=== PATIENT | male | born 1970 | race Caucasian/White ===

== ENCOUNTER 2018-02-22 17:30 | Inpatient (IN) | payer OTHER ==
[~2018-02-22] VITALS: Ht 177.8 cm; Wt 79.4 kg
--- NOTE | 2018-02-23 20:10 | NUR ---
Pre-admission Notes Assessment done in intake office. Px appears disheveled, anxious and unshaven. Px has good eye contact. Px is A&Ox4. Px is ambulatory with steady gait. Speech is clear and audible. Px is cooperative, hyper and talkative. VS are as follows BP= 127/84, MI= 120, RR= 20, T= 97.3, O2sat= 97%. Px is here for medically supervised withdrawal from ETOH, methamphetamine, and marijuana. Px denies any hx of withdrawal-induced seizure. Px is allergic to Prednisone. Px has brought home medications for reconciliation. Admission process will continue in the unit.
[2018-02-23] MEDS ORDERED: LORAZEPAM 2 MG/1 ML VIAL IM PRN (20:30)
[2018-02-23] MEDS ORDERED: ONDANSETRON ODT 4 MG TAB.RAPDIS SL PRN (20:30)
[2018-02-23] MEDS ORDERED: LOPERAMIDE HCL 2 MG CAPSULE PO PRN ×2 (20:30)
[2018-02-23] MEDS ORDERED: MAGNESIUM HYDROXIDE 30 ML LIQUID UDC PO PRN (20:30)
[2018-02-23] MEDS ORDERED: MIRALAX 17 GM POWD.PACK PO PRN (20:30)
[2018-02-23] MEDS ORDERED: ONDANSETRON 4 MG/2 ML VIAL IM PRN (20:30)
[2018-02-23] MEDS ORDERED: diphenhydrAMINE 50 MG CAPSULE PO PRN (20:30)
[2018-02-23] MEDS ORDERED: MAG HYDROX/AL HYDROX/SIMETH 30 ML LIQUID UDC PO PRN (20:30)
[2018-02-23] MEDS ORDERED: DICYCLOMINE HCL 20 MG TABLET PO PRN (20:30)
[2018-02-23] MEDS ORDERED: LORAZEPAM 1 MG TABLET PO PRN ×3 (20:30)
[2018-02-23 21:15] VITALS: BP 123/102
--- NOTE | 2018-02-23 21:15 | NUR ---
CIWA 15 Px anxious and agitated. He has bilateral hand tremors. He has H/A, stomach cramp and no nausea. We'll continue to monitor.
--- NOTE | 2018-02-23 21:15 | NUR ---
Admission Notes Px is 47 y/o male who is being admitted for medically supervised withdrawal from ETOH, methamphetamine and marijuana. Px is intoxicated with methamphetamine at the moment and not with ETOH. Px is currently experiencing withdrawal from ETOH. Px appears disheveled, unshaven and anxious and depressed. Px is A&Ox4. He is cooperative, hyper, talkative with good eye contact. Speech is clear and audible. Px states that withdrawal from these substances include the following: boredom, bad sexual life, depression, irritability and dehydration. Px denies a hx of withdrawal-induced seizure. Px states current substance use as follows: 1. ETOH- Beer 12 cans or liquor of 750 ml daily for 6 mos, where the last intake was yesterday 02/22/2018 of 4 cans of beer. Px has been drinking ETOH for 40 years. 2. Methamphetamine- 3G IV/smoked daily for 5 mos, where the last use was today 02/23/2018 of 3.5 G IV/smoked. Px has been using meth for 34 years. 3. Marijuana- intermittent use of unspecified amount, px smokes it. Px has been smoking weed for 35 years. Px states "I decided to come today because I want to keep my life in order. I started noticing that my life is not on track anymore. My job is affected already. I am losing my skills. 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 I need to maintain my home, and my pets. I need to pay my bills. I want to be sober again and be organized. My ex-wifes insurance is what I am using here for my detox. We are in the process of divorce but she is still supporting me. I am starting to feel depressed." Px was in detox 7x and in rehabilitation center 7x where the last was in [facility] last 6-7 mos ago. Px added I relapsed because I had no spiritual defense and tools for recovery. I am poor in handling stress. My plan after detox is to go to [facility] and finish the program there for maybe 30 days. I need to come back to work right after that. I have a house to maintain and pets to feed. Px longest sobriety was 5 years in 1992 to 1997. VS are as follows BP= 123/102, NH= 113, RR= 18, T= 98.5, O2sat= 98% on RA. Px complained of back pain 5/10. Pulse is regular but tachycardic. Respirations are even and unlabored. Lung sounds are clear. Bowel sounds are active in all quadrants. Skin is intact. Mary Anne follows regular diet at home. Mary Anne is allergic to Prednisone. Mary Anne stands at 510 and weighs 175 lbs on standing scale. Px smokes 1 pack of cigarettes daily. Px PMH includes herniated disk in 2012, hx of URTI, Hep C in 2005, anxiety and depression. Px stated that his parents were both alcoholic but already due to cancers. Px has one sister and she is an occasional alcohol drinker. Mary Anne was educated about the plan of care including detox, group therapy, individual therapy therapy and D/C planning. Mary Anne was encouraged to be open and honest for a successful detox and good recovery.
[2018-02-23] MEDS ORDERED: NEOM1PAC2 TP (21:26)
[2018-02-23] MEDS ORDERED: MULT-1119 PO (21:26)
[2018-02-23 21:49] LABS: BASOPHILS # (AUTO) 0.1 K/uL (0.0-8.0); BASOPHILS % (AUTO) 0.7 % (0.0-2.0); EOSINOPHILS # (AUTO) 0.2 K/uL (0.0-0.7); EOSINOPHILS % (AUTO) 1.9 % (0.0-7.0); HEMATOCRIT 46.7 % (36.7-47.1); HEMOGLOBIN 16.1 g/dL (12.5-16.3); LYMPHOCYTES # (AUTO) 2.8 K/uL (20.0-40.0); LYMPHOCYTES % (AUTO) 33.4 % (20.5-51.5); MEAN CORPUSCULAR HEMOGLOBIN 33.2 uug (23.8-33.4); MEAN CORPUSCULAR HGB CONC 34 g/dL (32.5-36.3); MEAN CORPUSCULAR VOLUME 96.6 fL (73.0-96.2); MONOCYTES # (AUTO) 0.9 K/uL (2.0-10.0); MONOCYTES % (AUTO) 10.2 % (0.0-11.0); NEUTROPHILS # (AUTO) 4.5 K/uL (1.8-8.9); NEUTROPHILS % (AUTO) 53.8 % (38.5-71.5); PLATELET COUNT (AUTO) 324 K/uL (152-348); RED BLOOD CELL COUNT(AUTO) 4.84 MIL/uL (4.06-5.63); WHITE BLOOD COUNT (AUTO) 8.4 K/uL (3.6-10.2)
[2018-02-23 22:05] LABS: ETHANOL < 3 MG/DL (0-0)
[2018-02-23] MEDS ORDERED: THIAMINE HCL 200 MG/2 ML VIAL IM ONE (22:21)
--- NOTE | 2018-02-23 22:21 | NUR ---
Vit B1 injection Px received Vit B1 injection 100 mg IM as 1x dose on his right deltoids.
[2018-02-23 22:24] LABS: ALANINE AMINOTRANSFERASE 39 U/L (16-63); ALKALINE PHOSPHATASE 121 U/L (50-136); AMYLASE 43 U/L (25-115); ASPARTATE AMINOTRANSFERASE 23 U/L (15-37); BILIRUBIN,TOTAL 0.3 mg/dL (0.2-1.0); CARBON DIOXIDE 26 mmol/L (21-32); CHLORIDE 101 mmol/L (98-107); CREATININE 1.3 mg/dL (0.6-1.3); GLUCOSE 146 mg/dL (74-106); LIPASE 166 U/L (73-393); MAGNESIUM 2.1 mg/dL (1.8-2.4); POTASSIUM 3.3 mmol/L (3.5-5.1); TOTAL PROTEIN, SERUM 7.8 g/dL (6.4-8.2); UREA NITROGEN, BLOOD 15 mg/dL (7-18)
[2018-02-23] MEDS: CLONIDINE HCL 0.1 MG TABLET PO PRN (22:27)
--- NOTE | 2018-02-23 22:27 | NUR ---
PRN Clonidine Px has not provided urine yet for UDS. Px received Clonidine 0.1 mg/tab, 1 tab PO for anxiety. We'll continue to monitor.
[2018-02-23 22:35] LABS: THYROID STIMULATING HORMONE 2.253 mIU/mL (0.358-3.740)
[2018-02-23] MEDS ORDERED: POTASSIUM CHLORIDE 20 MEQ TAB.PRT.SR PO ONE (23:15)
--- NOTE | 2018-02-23 23:43 | NUR ---
K-Dur 1x dose Px received K-Dur 20 mEq/tab, 2 tabs as 1x dose for low potassium. We'll continue to monitor.
[2018-02-24] VITALS: BP 138/74
--- NOTE | 2018-02-24 | NUR ---
CIWA 13 Px is still awake but trying to sleep on his bed. Px appears anxious. He has bilateral hand tremors, H/A, stomach cramp and no nausea. Px has not provided urine yet for UDS. We'll continue to monitor.
[2018-02-24] MEDS ORDERED: 5 DAY TAPER VALIUM-SERENITY PROTOCOL PO PRN (02:30)
[2018-02-24 04:00] VITALS: BP 128/78
--- NOTE | 2018-02-24 04:00 | NUR ---
CIWA deferred CIWA deferred due to the px is asleep, to assess if the px is awake per doctor's order. We'll continue to monitor.
--- NOTE | 2018-02-24 07:00 | NUR ---
End of Shift Notes Px didnt provide urine for UDS. At 2227, px received Clonidine 0.1 mg PO for anxiety. It was effective. At 2343, K-Dur 40 mEqs given PO for low potassium. Px oral intake is 1500 ml, no void and No BM. Px slept for 6 hours. At 0630, px is asleep on bed in left side lying position. Last CIWA 13. Bed on lowest position, side rails up 2x, and call light within reach. Well continue to monitor. Px endorsed to AM shift nurse.
--- NOTE | 2018-02-24 07:30 | NUR ---
Start of Shift Notes: Received patient in his room. He is seen laying in bed. Eyes closed. Appears restless in bed. Frequently shifting his body movement, restless legs, and both arms crossed on his chest while swinging his body left and right in bed. He was encouraged to verbalize his feelings and concerns. Appears disheveled, unshaven, flushed, red eyes, dirty fingernails, and unkempt. Encouraged maintenance of personal hygiene and space. Room appears messy with empty bottles at bedside. Maintenance of personal hygiene and space was encouraged. Affect is blunt, he verbalizes that he is worried, and anxious about the situation. He states "I've done this way too many times." Support provided. Patient is a 47 year old male admitted for ETOH and methamphetamine withdrawal who was placed on a 5-day Valium taper as ordered. Patient will be starting today. Per night report, patient has not given urine for UDS, last CIWA 13, slept for 6 hours. PRN Clonidine given. Educated patient on his current plan of care for the day and his medication regimen. Encouraged oral fluid intake and encouraged group participation to learn new skills to prevent relapse. Will continue to monitor closely.
[2018-02-24 08:00] VITALS: BP 135/92
[2018-02-24] MEDS: THIAMINE HCL 100 MG TABLET PO SCH (08:24)
[2018-02-24] MEDS: CLONIDINE HCL 0.1 MG TABLET PO PRN (08:24)
[2018-02-24] MEDS: ACETAMINOPHEN 325 MG TABLET PO PRN (08:24)
[2018-02-24] MEDS: MULTIVITAMINS,THERAPEUTIC TABLET PO SCH (08:25)
[2018-02-24] MEDS: FOLIC ACID 1 MG TABLET PO SCH (08:25)
[2018-02-24] MEDS: HYDROXYZINE PAMOATE 25 MG CAPSULE PO PRN (08:25)
--- NOTE | 2018-02-24 08:25 | NUR ---
Tylenol 650 mg/Vistaril 50 mg/Clonidine 0.1mg PO given: Patient noted with complain of mild headache 3/10, anxious, hyperverbal, agitated. Noted with sweating visible on the forehead, and appears flushed. Medicated patient with Tylenol 650 mg PO, Vistaril 50 mg PO and Clonidine 0.1mg PO as ordered. Will monitor for effectiveness.
--- NOTE | 2018-02-24 08:34 | NUR ---
[facility] Assessment/MD Communication: ADAM 23, patient noted with gross tremors, restlessness, hyperverbal, appears flushed, agitated, sweating. Prefers the room dark. Complains of chills, hot flashes, and states "my head feels full." Denies S/I or H/I. No AV hallucinations noted. Patient is still unable to provide urine for UDS. Notified MD Flores. Per MD, continue current taper orders at this time. Addendum: 02/24/18 at 0838 by SANTO SURESH LVN Amended: Links added.
[2018-02-24] MEDS: DIAZEPAM 10 MG TABLET PO SCH ×4 (08:53→21:57)
[2018-02-24] MEDS ORDERED: POTASSIUM CHLORIDE 20 MEQ TAB.PRT.SR PO ONE (09:00)
[2018-02-24] MEDS ORDERED: TUBERCULIN,PURIF.PROT.DERIV. 5 TU/0.1 ML TEST ID ONE (09:00)
--- NOTE | 2018-02-24 09:25 | NUR ---
Re-assessment: Clonidine/Vistaril and Tylenol Patient verbalizes some relief from anxiety, less sweating noted. CLINTON is now a 2/10. He is attempting to get some sleep but is restless in bed. He is seen with restless legs while laying down. Shifts his body position. 5-day Valium taper initiated. PRN Clonidine/Vistaril and Tylenol were effective.
[2018-02-24 09:51] LABS: *AMPHETAMINE, URINE POSITIVE (NEGATIVE); *BARBITURATE, URINE NEGATIVE (NEGATIVE); *CANNABINOID, URINE NEGATIVE (NEGATIVE); *COCCAINE, URINE NEGATIVE (NEGATIVE); *OPIATE, URINE NEGATIVE (NEGATIVE); *PHENCYCLIDINE SCREEN,URINE NEGATIVE (NEGATIVE)
[2018-02-24 12:00] VITALS: BP 126/75
--- NOTE | 2018-02-24 12:00 | NUR ---
CIWA Assessment: Patient's CIWA -17, continues to present with s/s of withdrawal m/b gross tremors, restlessness, sweating noted, anxiety, agitation, fidgety, and light sensitivity. Denies S/i or H/I noted. No AV hallucinations noted. Oral fluids encouraged. Scheduled Valium given. MD Flores made aware of patient's CIWA score. Per MD, continue Valium taper as scheduled. Will continue to monitor. Addendum: 02/24/18 at 1217 by SANTO SURESH LVN Amended: Links added.
[2018-02-24 16:00] VITALS: BP 99/67
--- NOTE | 2018-02-24 16:00 | NUR ---
[facility] Assessment: CIWA 14, patient continues to present s/s of withdrawal m/b anxiety, agitation, tremors, sweating and light sensitivity. He states "It's less now." Will continue to monitor. Addendum: 02/24/18 at 1639 by SANTO SURESH LVN Amended: Links added.
--- NOTE | 2018-02-24 17:21 | NUR ---
Client was prompted by therapist to attend daily group therapy sessions. Client related that he would attend if he was feeling well.
--- NOTE | 2018-02-24 19:14 | NUR ---
End of Shift Notes: Patient initiated his 5-day Valium taper today to manage symptoms related to ETOH withdrawal. No adverse reactions noted. VS monitored closely. No significant abnormalities noted. Withdrawal symptoms were closely monitored. Initial CIWA 23, patient presented with diaphoresis, gross tremors, restlessness, fatigue, anxiety, agitation, headache, light sensitivity and tactile disturbance. Medicated patient with Clonidine, Vistaril and Tylenol at 0825 as ordered with help. Last CIWA 14. Patient was unable to participate in group and activities due to his withdrawal symptoms. He was also noted with episodes of hyper somnolence during the day due to methamphetamine withdrawal. Appetite good. Compliant with care and treatment. All needs met and attended. Will continue to monitor.
[2018-02-24 20:00] VITALS: BP 127/74
--- NOTE | 2018-02-24 20:00 | NUR ---
CIWA deferred CIWA deferred due to the px is asleep, to assess if the px is awake per doctor's order. We'll continue to monitor.
--- NOTE | 2018-02-24 20:00 | NUR ---
Start of Shift Note Received a 47 y/o male px, admitted for medically supervised withdrawal from ETOH. Px was placed on 5 day Valium taper started today, 02/24/2018. Px is tolerating it. Last reported CIWA 14 by AM shift nurse. During the rounds at 2000, px is asleep on bed in left side lying position. Snacks and drinks noted on top of the bed side table and on top of the shelves. Px is disheveled, unshaven and odorous. Bed on lowest position, side rails up 2x, and call light within reach. Well continue to monitor.
--- NOTE | 2018-02-24 21:45 | NUR ---
CIWA 14 Px is A&Ox4. Px appears anxious. Bilateral hand tremors noted. Px complained of sweats, mild stomach cramps and mild H/A. We'll continue to monitor.
--- NOTE | 2018-02-24 21:45 | NUR ---
Px woke up PX woke up to take his night medication. Px appears drowsy, unshaven, anxious, disheveled with good eye contact. Px stated "My anxiety is still there 4-12/24. I still have LBP around 410." Bilateral hand tremors noted. Complained also for stomach cramps. We'll continue to monitor.
[2018-02-25] VITALS: BP 127/84
--- NOTE | 2018-02-25 | NUR ---
CIWA deferred CIWA deferred due to the px is asleep, to assess if the px is awake per doctor's order. We'll continue to monitor.
--- NOTE | 2018-02-25 01:15 | NUR ---
Px concerns on Valium Px stated "I feel like I am doped. What you are giving me is strong. I want to go out to smoke or attend the groups or take a shower, but I can't do it. I am confined on my bed. It's like I don't have power to walk or do something. Valium taper was explained to the px. Px concern was relate to the charge nurse.
--- NOTE | 2018-02-25 01:15 | NUR ---
CIWA 11 Px woke up asking for chocolate bar. Px appears anxious with good eye contact. Bilateral hand tremors noted. We'll continue to monitor.
[2018-02-25 04:00] VITALS: BP 123/86
--- NOTE | 2018-02-25 04:00 | NUR ---
CIWA deferred CIWA deferred due to the px is asleep, to assess if the px is awake per doctor's order. We'll continue to monitor.
--- NOTE | 2018-02-25 07:05 | NUR ---
End of Shift Notes During the shift, px slept most of the time. No PRN medications given. Px slept for total of 9 hours. Px woke up at 0115 with concerns of lowering his Valium dose. Pxs concerns was relayed to the charge nurse. Pxs oral intake is 1000 ml, voided 2x with 1x BM. At 0630, px is asleep on bed in fowlers position. Last CIWA 11. Bed on lowest position, side rails up 2x, and call light within reach. Well continue to monitor. Px endorsed to AM shift nurse.
--- NOTE | 2018-02-25 07:13 | NUR ---
Start of Shift Notes: Received patient in his room. Alert and oriented x 4. Arousable when his name is called. Appears restless in bed. Frequently shifting his body position. Appears disheveled, unshaven, flushed, dirty fingernails, and unkempt. Encouraged maintenance of personal hygiene and space. Room appears messy with empty bottles and candy wrappers on the bed and at bedside. Affect is blunt. Encouraged to verbalize his feelings and concerns. Support provided. Patient is a 47 year old male admitted for ETOH and methamphetamine withdrawal who was placed on a 5-day Valium taper as ordered. Patient is going to start day 2 today. Per night report, patient did not receive and PRN. Last CIWA 11 and slept for 9 hours. Educated patient on his current plan of care for the day and his medication regimen. Encouraged oral fluid intake and encouraged group participation to learn new skills to prevent relapse. Will continue to monitor closely. Will follow up with MD patient's concern regarding Valium taper.
[2018-02-25 08:00] VITALS: BP 130/83
--- NOTE | 2018-02-25 08:40 | NUR ---
[facility] Assessment/MD Communication: [facility] 18, patient presented with mild nausea, gross tremors, sweating, anxiety, agitation and mild light sensitivity. Notified MD, per MD continues current taper as ordered. Addendum: 02/25/18 at 0947 by SANTO SURESH LVN Amended: Links added.
[2018-02-25] MEDS: IBUPROFEN 600 MG TABLET PO PRN (09:02)
[2018-02-25] MEDS: THIAMINE HCL 100 MG TABLET PO SCH (09:02)
[2018-02-25] MEDS: MULTIVITAMINS,THERAPEUTIC TABLET PO SCH (09:02)
[2018-02-25] MEDS: FOLIC ACID 1 MG TABLET PO SCH (09:02)
[2018-02-25] MEDS: DIAZEPAM 10 MG TABLET PO SCH ×3 (09:02→21:00)
--- NOTE | 2018-02-25 09:02 | NUR ---
Motrin 600 mg PO given: Patient noted with complain of 6/10 low back pain r/t hx of herniated disc and DJD. Heat packs provided. Medicated patient with Motrin 600 mg PO as ordered. Will monitor for effectiveness.
--- NOTE | 2018-02-25 10:02 | NUR ---
Re-assessment: Motrin 600 mg PO Patient verbalizes relief from low back pain. PL is now 3/10. PRN Motrin was effective.
[2018-02-25 11:09] LABS: HEPATITIS B SURFACE AG Negative (Negative)
--- NOTE | 2018-02-25 11:18 | NUR ---
Communication: Labs Reviewed labs. Hep C results >11.0, patient reported hx of Hep C in 2005. made aware.
[2018-02-25 12:00] VITALS: BP 130/82
--- NOTE | 2018-02-25 12:40 | NUR ---
[facility] Assessment/ Communication: OTIS 17, patient continues to exhibit s/s of withdrawal related to ETOH m/b anxiety, agitation, tremors, clammy skin and sweats. MD Flores in the unit and made aware. Addendum: 02/25/18 at 1241 by SANTO SURESH LVN Amended: Links added.
--- NOTE | 2018-02-25 14:15 | NUR ---
MD Communication: Chest pain/VS Patient's pulse was noted to be 118 while at rest. He complains of right sided chest pain as well as left arm pain. He states "It's been 2 weeks since I've been feeling some pain on my chest, I feel like there's something there. I don't think it's anxiety though." Notified MD Flores in the unit and gave verbal orders to do Troponin level and EKG STAT. Orders noted and carried out.
--- NOTE | 2018-02-25 15:55 | NUR ---
MD Communication: EKG/Troponin level results Patient's EKG resulted. Results stated "sinus tachycardia." Troponin levels were 0.017. Notified MD. GISELAO made.
[2018-02-25 16:00] VITALS: BP 158/95
--- NOTE | 2018-02-25 16:03 | NUR ---
CIWA Assessment: Patient's CIWA 15, he continues to complain of anxiety, agitation, and light sensitivity. Skin moist to touch. Will continue to monitor. Offer support and offer mds as ordered. Addendum: 02/25/18 at 1603 by SANTO SURESH LVN Amended: Links added.
[2018-02-25] MEDS: CLONIDINE HCL 0.1 MG TABLET PO PRN (16:41)
[2018-02-25] MEDS: HYDROXYZINE PAMOATE 25 MG CAPSULE PO PRN (16:41)
--- NOTE | 2018-02-25 16:41 | NUR ---
Clonidine 0.1mg/Vistaril 50 mg PO given: Patient appears anxious. States "I feel my heart beating so fast. I'm too anxious. Something is bothering me and I don't know what it is." Redirection and reassurance provided. BP 161/95, Pulse 108. Medicated patient with Clonidine 0.1mg PO and Vistaril 50 mg PO as ordered. Denies S/I or H/I. Denies AV hallucinations. Will monitor for effectiveness.
--- NOTE | 2018-02-25 17:41 | NUR ---
Re-assessment: Clonidine and Vistaril Patient verbalizes relief form anxiety, and sweats. BP 139/89, Pulse 99. PRN Clonidine and Vistaril were effective.
--- NOTE | 2018-02-25 19:21 | NUR ---
End of Shift Notes: Patient continues to on 5-day Valium as ordered. Patient is currently on day 2 on his taper. VS monitored closely. Noted to be tachycardic during the day. MD aware. Withdrawal symptoms were closely monitored. Initial CIWA 18, patient presented with nausea, tremors, sweating, anxiety, agitation, clammy skin, fatigue and light sensitivity. Last CIWA 15. Per patient, Valium has been effective in reducing his withdrawal symptoms. Medicated patient with Motrin 600 mg PO as ordered for back pain. He was noted to complain of chest pain. EKG/Troponin level done. NNO made. Encouraged to attend group and activities. Appetite good. All needs met and attended. Will continue to monitor closely.
--- NOTE | 2018-02-25 19:22 | NUR ---
Start of shift note Received report from day shift nurse. Pt is a 47 yo male, A+Ox4, presenting to [facility] for ETOH/Meth withdrawal. Pt noted to be fatigued, agitated, irritable, and anxious. Pt has HX of Herniated disc, URI, Hep C+, Anxiety, and Depression which will be monitored during shift. Pt is on 5 day Valium taper, tolerated well. Respirations even and unlabored. Will continue to monitor.
[2018-02-25 20:12] VITALS: BP 123/84
--- NOTE | 2018-02-25 20:12 | NUR ---
CIWA: 12. Pt noted with fine tremors, anxiety, agitation, and sweat on forehead. Respirations even and unlabored. Will continue to monitor.
--- NOTE | 2018-02-26 00:28 | NUR ---
V/S refused and CIWA deferred for sleep. Respirations even and unlabored. Will continue to monitor.
--- NOTE | 2018-02-26 04:20 | NUR ---
V/S refused and CIWA deferred for sleep. Respirations even and unlabored. Will continue to monitor.
[2018-02-26] MEDS: IBUPROFEN 600 MG TABLET PO PRN (06:31)
[2018-02-26] MEDS: CLONIDINE HCL 0.1 MG TABLET PO PRN (06:31)
--- NOTE | 2018-02-26 06:31 | NUR ---
PRN Clonidine and Motrin Pt c/o anxiety and back pain 11/24. PRN Clonidine and Motrin given and tolerated well. Will reassess within 1 HR. Will continue to monitor.
--- NOTE | 2018-02-26 07:00 | NUR ---
End of shift note Pt was continuously noted with fatigue, agitation, irritability, and anxiety. Pt remained in room for majority of shift except to get food from kitchen. Pt remained compliant and cooperative with all aspects of treatment. Pt was given PRN Clonidine and Motrin @0630. Pt is on 5 day Valium taper, tolerated well. Pt slept for a total of 9 HRS. Last CIWA: 12 @1999. Respirations even and unlabored. Will endorse to day shift nurse.
--- NOTE | 2018-02-26 07:10 | NUR ---
PRN Clonidine and Motrin Reassessment Medication effective. Pt expresses reduction in anxiety and reduction in back pain to 2/10. No s/s of ASE noted at this time. Respirations even and unlabored. AM nurse will continue to monitor.
--- NOTE | 2018-02-26 07:27 | NUR ---
Start of Shift Notes: Received patient in his room. Alert and oriented x 4. Arousable when his name is called. Appears restless in bed. Frequently shifting his body position. Encouraged maintenance of personal hygiene and space. Room appears messy with empty bottles and candy wrappers on the bed and at bedside. Affect is blunt. Encouraged to verbalize his feelings and concerns. Patient states " I don't know I've been feeling a little depressed lately." Support provided. Will refer to MD. Patient is a 47 year old male admitted for ETOH and methamphetamine withdrawal who was placed on a 5-day Valium taper as ordered. Patient is going to start day 3 today. Per night report, patient received Clonidine and Motrin at 0630 with help. Last CIWA 12 and slept for 9 hours. Educated patient on his current plan of care for the day and his medication regimen. Encouraged oral fluid intake and encouraged group participation to learn new skills to prevent relapse. Will continue to monitor closely.
[2018-02-26 08:00] VITALS: BP 113/83
--- NOTE | 2018-02-26 08:25 | NUR ---
[facility] Assessment/MD Communication: [facility] 21, patient states "I don't feel right today. I feel like shit." Encouraged patient to verbalize his feelings and concerns. He states "I feel nervous, anxious, hungry, a lot of guilt, shame and depression. He is noted with anxiety/agitation, pacing and restless while in the room, gross tremors and sweating. Will offer PRN meds. Notified MD. Will continue to monitor. Addendum: 02/26/18 at 0836 by SANTO SURESH LVN Amended: Links added.
[2018-02-26] MEDS: HYDROXYZINE PAMOATE 25 MG CAPSULE PO PRN (08:29)
[2018-02-26] MEDS: THIAMINE HCL 100 MG TABLET PO SCH (08:29)
[2018-02-26] MEDS: MULTIVITAMINS,THERAPEUTIC TABLET PO SCH (08:29)
[2018-02-26] MEDS: ACETAMINOPHEN 325 MG TABLET PO PRN (08:29)
[2018-02-26] MEDS: FOLIC ACID 1 MG TABLET PO SCH (08:29)
--- NOTE | 2018-02-26 08:29 | NUR ---
Vistaril 50 mg PO/Tylenol 650 mg PO: Patient noted with anxiety, and agitation. Pulse 116. BP 113/83, He complains of 4/10 low back pain. Medicated patient with Vistaril 50 mg PO and Tylenol 650 mg PO as ordered. Will monitor for effectiveness. Addendum: 02/26/18 at 1109 by SANTO SURESH LVN Error. Duplicate charting
--- NOTE | 2018-02-26 08:29 | NUR ---
Tylenol 650 mg/Vistaril 50 mg PO given: Patient noted with complain of 4/10 back pain r/t hx of herniated disc. He is noted to be anxious and restless. Non-pharmacological interventions provided. Patient verbalizes that he feels that he is confused as to where to go in life regarding his girlfriend and . He verbalizes that he needs to get his life back but does not know how. Referred patient to Herrera, therapist. Medicated patient with Tylenol 650 mg PO and Vistaril 50 mg PO as ordered. Will monitor for effectiveness.
[2018-02-26] MEDS: DIAZEPAM 5 MG TABLET PO SCH ×5 (08:30→21:00)
--- NOTE | 2018-02-26 09:29 | NUR ---
Re-assessment: Tylenol and Vistaril Patient veralizes that PRN Tylenol was effective in relieving back pain. He states that he continues to feel anxious and agitated. Vistaril 50 mg PO was mildly effective. Herrera, therapist is speaking with the patient at this time.
--- NOTE | 2018-02-26 10:41 | NUR ---
MD Communication: Behavior/CIWA note Patient noted with increase in anxiety and agitation. He states "I see colors in my line of vision and my skin is crawling, everything is a mess." Redirected patient and reassurance was provided. He was noted to be tremulous and sweating. Encouraged patient to verbalize his feelings and concerns. Patient states "I'm a mess, I'm confused with my life but my skin is crawling." Patient's CIWA was noted to be 26. Notified MD Mcdonough in the unit with orders to give Seroquel 50 mg PO TID with the first dose now and orders obtained from Dr. Flores who was notified of patient's CIWA with orders to administer Ativan 2 mg PO q 2 hours PRN x 24 hours. MDs were unable to enter orders. Orders noted and carried out. Referred patient to therapist, Herrera.
[2018-02-26] MEDS ORDERED: LORAZEPAM 1 MG TABLET PO PRN ×2 (10:45)
--- NOTE | 2018-02-26 10:49 | NUR ---
Psych MD evaluation: 1:1 Patient was seen and examined by Dr. Mcdonough at this time with orders to place patient on 1:1 due to visual hallucinations. Seeing colors on the wall and increase agitation leading to rage. Patient was placed on a 1:1 at this time.
[2018-02-26] MEDS: QUETIAPINE FUMARATE 25 MG TABLET PO SCH ×3 (10:51→21:00)
--- NOTE | 2018-02-26 10:51 | NUR ---
Ativan 2 mg PO given: Patient was given Ativan 2 mg PO for CIWA 26, patient presented with increased agitation, pacing, panic state, anxiety, gross tremors, restlessness, tachycardia and visual hallucinations and tactile disturbance. Patient was also given first dose of Seroquel 50 mg PO TID at this time for severe agitation. Will monitor for effectiveness.
--- NOTE | 2018-02-26 11:51 | NUR ---
Re-assessment: Ativan Patient continues to report visual hallucinations. He states " I still see colors and patterns on my vision. It's like I have floaters and my skin keeps crawling. I'm so anxious and I'm shaking." Upon assessment, ADAM was a 26. Will administer Valium as scheduled. aware.
[2018-02-26 12:00] VITALS: BP 139/89
--- NOTE | 2018-02-26 12:00 | NUR ---
[facility] Assessment/MD Communication: [facility] 24, patient noted with severe anxiety, agitation, gross tremors, and sweating. He continues to see patterns and colors. He denies any S/I or H/I at this time. On 1:1 for safety. He is noted to attempt to fall asleep but keeps on waking up after a few minutes. MD Flores made aware.
--- NOTE | 2018-02-26 13:29 | NUR ---
Several attempts have been made to complete [employer] however due to his level of consciousness and withdrawal symptoms he has been unable to go through the interview. There is some evidence of confusion as he is convinced one of the male staff members know his girlfriend. He is still requiring a one-to-one due to his confusion and fall risk.
[2018-02-26 15:42] LABS: BASOPHILS # (AUTO) 0.1 K/uL (0.0-8.0); BASOPHILS % (AUTO) 0.7 % (0.0-2.0); EOSINOPHILS # (AUTO) 0.4 K/uL (0.0-0.7); EOSINOPHILS % (AUTO) 5.3 % (0.0-7.0); HEMOGLOBIN 15.9 g/dL (12.5-16.3); LYMPHOCYTES # (AUTO) 2.7 K/uL (20.0-40.0); LYMPHOCYTES % (AUTO) 38.7 % (20.5-51.5); MEAN CORPUSCULAR HEMOGLOBIN 33.3 uug (23.8-33.4); MEAN CORPUSCULAR HGB CONC 35 g/dL (32.5-36.3); MEAN CORPUSCULAR VOLUME 96.3 fL (73.0-96.2); MONOCYTES # (AUTO) 0.7 K/uL (2.0-10.0); MONOCYTES % (AUTO) 10.3 % (0.0-11.0); NEUTROPHILS # (AUTO) 3.1 K/uL (1.8-8.9); PLATELET COUNT (AUTO) 292 K/uL (152-348); RED BLOOD CELL COUNT(AUTO) 4.78 MIL/uL (4.06-5.63)
[2018-02-26 16:00] VITALS: BP 138/90
[2018-02-26 16:06] LABS: BILIRUBIN,TOTAL 0.2 mg/dL (0.2-1.0); CREATININE 0.9 mg/dL (0.6-1.3); POTASSIUM 4.2 mmol/L (3.5-5.1); TOTAL PROTEIN, SERUM 6.6 g/dL (6.4-8.2)
--- NOTE | 2018-02-26 17:47 | NUR ---
CIWA Deferred: Patient is laying in bed. Sound asleep arousable. Breathing even and unlabored. RR 18. Unable to obtain CIWA at this time Addendum: 02/26/18 at 1748 by SANTO SURESH LVN Amended: Links added.
--- NOTE | 2018-02-26 17:49 | NUR ---
Valium at 1700 not administered: patient appears too sedated. Vs stable. Valium dose at 1700 held. made aware.
--- NOTE | 2018-02-26 17:59 | NUR ---
Valium at 1700 administered/CIWA Assessment: CIWA 18, patient continues to present with tremors, light sensitivity, visual patterns on the wall, agitation, anxiety and fatigue, mild tactile disturbance noted. Notified MD of patient's CIWA. Per MD, continue with current orders. Will continue to monitor. Administered Valium 5 mg PO at 1700 dose.
--- NOTE | 2018-02-26 19:08 | NUR ---
End of Shift Notes: Patient continues to on 5-day Valium as ordered. Patient is currently on day 3 of his taper. VS monitored closely. Patient continues to be tachycardic. Withdrawal symptoms were closely monitored. Initial CIWA 121, patient presented with viaul hallucinations, tremors, sweating, severe anxiety, severe agitation, clammy skin, fatigue and light sensitivity. He was placed on a 1:1 for severe agitation and visual hallucinations by Dr. Mcdonough (psych). Medicated patient with Ativan 2 mg PO PRN for CIWA 26 at 1051 with help after 1 hour. He was started on Seroquel 50 mg PO TID for severe agitation. Last CIWA 18. Per patient, Valium has been effective in reducing his withdrawal symptoms. PRN Tylenol 650 mg PO, and Vistaril 50 mg PO as ordered at 0829 for anxiety and low back pain. Patient is risk for AMA. Encouraged to attend group and activities. He was unable to attend group and activities today due to his withdrawal symptoms. Appetite good. All needs met and attended. Will continue to monitor closely.
--- NOTE | 2018-02-26 19:15 | NUR ---
Start of shift note Received report from day shift nurse. Pt is a 47 yo male, A+OX4, presenting to [facility] for ETOH/Meth withdrawal. Pt noted to be anxious, agitated, irritable, restless, and angry. Pt has HX of Herniated disc, URI, Hep C, Anxiety, and depression. Pt is on 5 day Valium taper, tolerated well. Respirations even and unlabored. Will continue to monitor. Addendum: 02/27/18 at 0432 by HERMINIO ROSS LVN Pt is on 1:1 observation for confusion and fall risk.
[2018-02-26 20:01] VITALS: BP 135/84
--- NOTE | 2018-02-26 20:01 | NUR ---
CIWA: 17. Pt noted with fine tremors, anxiety, agitation, itchiness, mild visual hallucinations, and sweat on forehead. Respirations even and unlabored. Will continue to monitor.
--- NOTE | 2018-02-26 21:07 | NUR ---
Crisis Team Evaluation Crisis steam turbine assembler arrived to evaluate pt. Pt is deemed appropriate for a hold and is placed on a 5150. Mental Health Unit notified and pertinent paperwork faxed.
[2018-02-26] MEDS ORDERED: LORAZEPAM 2 MG/1 ML VIAL IM ONE (21:15)
[2018-02-26] MEDS ORDERED: OLANZAPINE 10 MG VIAL IM ONE (21:15)
--- NOTE | 2018-02-26 22:00 | NUR ---
Behavioral Episode Summary Pt exhibited bizarre behavior, irritability, agitation, uncooperative, impulsive, labile unpredictable, slamming and kicking doors. Pt was hallucination prior to start of production supervisor off shift. Pt demanded to make a phone call and became aggressive when being told he would not be allowed to make a phone call tonight, but would have to wait until the morning shift. Pt became confrontational with staff members, started yelling, using profanity, throwing belongings in his room, threatened staff, and kicked doors. Pt walked into the nurses' station and grabbed a staff radio in attempt to make a call and tried using the phone at the it help desk analyst. He also insinuated he would act violently if he had a 1:1 during the night. Three code terry were called on at 2024, 2034 and 2124. Psych notified of behavior and Crisis team called for an evaluation at 1999. Pt was placed on a 5150 hold at 2107 and upon being informed of the hold he became agitated. After speaking with the client, he stated he would remain calm for the rest of the night as long as he was not given any medication, as pt refused to receive any medications during shift. Pt fell asleep at 2200.
--- NOTE | 2018-02-27 00:18 | NUR ---
V/S refused and CIWA deferred for sleep. Respirations even and unlabored. Will continue to monitor.
--- NOTE | 2018-02-27 04:33 | NUR ---
V/S refused and CIWA deferred for sleep. Respirations even and unlabored. Will continue to monitor.
--- NOTE | 2018-02-27 06:19 | NUR ---
Nursing Note Zyprexa 10mg IM and Ativan 2mg IM wasted by 2 RN's due to pt refusal of receiving them. Pt was able to establish verbal contract to comply with unit policies and parameters of 5150 hold. Sewing Machinist aware. Pt complied and has slept all throughout shift.
--- NOTE | 2018-02-27 07:00 | NUR ---
End of shift note Pt was continuously noted with fine tremors, anger, chills, irritability, anxiety, agitation, itchiness, restlessness, and mild visual hallucinations. Pt remains on 1:1 observation for safety and 5150 hold. Pt had a behavioral episode during shift leading to 5150 hold. (Please see nursing notes). Pt remained in room for majority of shift except to go smoke on smoking patio and to get food from kitchen. Pt was not given any PRN medications during shift. Pt is on 5 day Valium taper, tolerated well. Pt slept for a total of 8 HRS. Last CIWA: 17 @1999. Respirations even and unlabored. Will endorse to day shift nurse.
--- NOTE | 2018-02-27 07:12 | NUR ---
Start of Shift Note Pt. is a 47 y/o male admitted for the medically managed withdrawal from ETOH and methamphetamine salts. Pt. placed on a 5 day valium taper to manage withdrawal symptoms. Pt. is allergic to prednisone and has medical history of Hep C, depression, and anxiety. Pt. was placed on a 5150 hold last night at 2107 02/26/2018 for DTO. Pt. is on a 1:1 for VHs , and unsteady gait. Endorse pt. has been refusing medications and has had multiple behavioral events leading to being placed on a psychiatric hold. Received pt. in room. Pt. in bed with eyes closed, respirations even and unlabored. Pt. responsive to name and touch. No signs of acute distress noted. Pt. rooms is cluttered with food containers and personal items. Pt. appears disheveled and unkempt. Will encouraged pt. to maintain a hygienic person and personal space. Last CIWA of 17. Pt. slept [address] hours. Safety measures in place. Will continue to monitor pt.s behavior for safety.
[2018-02-27 08:00] VITALS: BP 143/101
--- NOTE | 2018-02-27 08:00 | NUR ---
[facility] Assessment/MD communication [facility] 18. Pt. presents with anxiety, agitation, hand tremors and restlessness. MD notified per MD orders. Valium 5mg due at this time but pt. is agitated, and is currently refusing all P.O. Medications. Will continue to monitor and encourage pt. to be compliant with treatment plan.
[2018-02-27] MEDS: QUETIAPINE FUMARATE 25 MG TABLET PO SCH ×4 (09:00→20:13)
[2018-02-27] MEDS: THIAMINE HCL 100 MG TABLET PO SCH ×2 (09:00→10:53)
[2018-02-27] MEDS: FOLIC ACID 1 MG TABLET PO SCH ×2 (09:00→10:54)
[2018-02-27] MEDS: DIAZEPAM 5 MG TABLET PO SCH ×4 (09:00→20:13)
[2018-02-27] MEDS: MULTIVITAMINS,THERAPEUTIC TABLET PO SCH ×2 (09:00→10:54)
[2018-02-27] MEDS ORDERED: NICOTINE POLACRILEX 4 MG GUM-PK OF TEN BC PRN (09:15)
[2018-02-27 12:00] VITALS: BP 133/93
[2018-02-27] MEDS ORDERED: NICOTINE 21 MG/24HR PATCH TD SCH (12:00)
--- NOTE | 2018-02-27 12:00 | NUR ---
CIWA Assessment and MD Communication Pt. presents with anxiety, restlessness, agitation, a blunted affect and fine hand tremors. Pt. focused on leaving the unit. CIWA at this time 17. MD aware. Will continue to monitor pt.'s behavior for safety.
[2018-02-27] MEDS: HYDROXYZINE PAMOATE 25 MG CAPSULE PO PRN ×2 (12:19→18:17)
[2018-02-27] MEDS: CLONIDINE HCL 0.1 MG TABLET PO PRN ×2 (12:24→18:17)
--- NOTE | 2018-02-27 12:24 | NUR ---
PRN Medication Pt. presents with anxiety and agitation. Gave pt. at this time Vistaril 50mg, and Clonidine 0.1mg to manage the pt.'s symptoms. Will continue to monitor pt.'s behavior for safety.
--- NOTE | 2018-02-27 13:11 | NUR ---
PRN Medication Pt. in room complaining of chest pain, and describes as a non radiating burning sensation. MD aware and assessed pt. at bedside. Pt. given Maloxx suspension to aid with his heartburn. Will continue to monitor pt.'s behavior for medication effectiveness and safety.
--- NOTE | 2018-02-27 13:24 | NUR ---
PRN Re-Assessment Pt. continue to complain of increase levels of anxiety and agitation. Medication not effective. Pt. educated on proper coping strategies, treatment plan and medication regiment. MD aware of pt.'s condition.
--- NOTE | 2018-02-27 14:11 | NUR ---
PRN Re-Assessment Pt. in room with laying in his bed with eyes open. Pt. states that he is no longer in pain. Medication effective. Will continue to monitor pt. for safety.
[2018-02-27 16:00] VITALS: BP 138/95
[2018-02-27] MEDS ORDERED: NICO-672 TD (16:18)
[2018-02-27] MEDS ORDERED: CLON0.1T14 PO (16:18)
[2018-02-27] MEDS ORDERED: IBUP-1955 PO (16:18)
[2018-02-27] MEDS ORDERED: NICO4GUM38 BC (16:18)
[2018-02-27] MEDS ORDERED: DIPH50CA37 PO (16:18)
[2018-02-27] MEDS ORDERED: FOLI1TAB16 PO (16:18)
[2018-02-27] MEDS ORDERED: HYDR-3895 PO (16:18)
[2018-02-27] MEDS ORDERED: DIAZ5TAB4 PO ×2 (16:18)
[2018-02-27] MEDS ORDERED: THIA100T13 PO (16:18)
[2018-02-27] MEDS ORDERED: MULT-24 PO (16:18)
[2018-02-27] MEDS ORDERED: QUET25TA PO (16:18)
--- NOTE | 2018-02-27 18:17 | NUR ---
PRN Medication Pt. complaining of anxiety and agitation. Gave PRN Clonidine and vistaril at this time. Will continue to monitor pt. for medication effectiveness and safety.
--- NOTE | 2018-02-27 19:16 | NUR ---
PRN Re-Assessment Pt. in bed with eyes closed. Breathing even and equal. no signs of acute distress noted. medication effective. Will continue to monitor pt. for safety.
--- NOTE | 2018-02-27 19:30 | NUR ---
CIWA 12 Px is eating snacks at this moment. Px is A&Ox4. Px stated "I am a mess, I just want to go home, smoke and sleep man. My anxiety is pretty low." Bilateral hand tremors noted. We'll continue to monitor.
--- NOTE | 2018-02-27 19:30 | NUR ---
Start of Shift Note Received a 47 y/o male px, admitted for medically supervised withdrawal from ETOH. Px was placed on 5 day Valium taper started, 02/24/2018. Px is tolerating it. AM shift nurse endorsed, Px is on 5150, 1 to 1 for hallucinations and safety. Px is to be transferred to another facility, [facility] under the care of psychiatrist Dr. Zuniga. Last reported CIWA 15 by AM shift nurse. During the rounds at 1930, px is awake sitting on chair taking a snack. Px appears anxious and depressed. Px looks disheveled, unshaven and odorous. Snacks and drinks are all over the top of the bed side table and on top of the shelves Px stated "I am a mess man. I just want to go home and smoke. I don't even remember what happened yesterday. I am just making up this hallucinations thing man." Px understood that he is going to be transferred tonight. No more complaints made. Bed on lowest position, side rails up 2x, and call light within reach. Well continue to monitor.
--- NOTE | 2018-02-27 19:30 | NUR ---
End of Shift Note Pt. is a 47 y/o male admitted for the medically managed withdrawal from ETOH and methamphetamine salts. Pt. placed on a 5 day valium taper to manage withdrawal symptoms. Pt. is allergic to prednisone and has medical history of Hep C, depression, and anxiety. Pt. was placed on a 5150 hold last night at 2107 02/26/2018 for DTO. Pt. is on a 1:1 for VHs , and unsteady gait/safety. Pt. was restless, agitated, anxious and irritable throughout shift. Multiple attempts were made to get pt. to comply with treatment but pt. remained uncooperative. Psych MD evaluated the pt. during rounds and found it fitting to transfer pt. to [facility]. Pt. accepted and discharge was initiated. Pt. was set to go to [facility] room 409D. This sports writer called and gave report to ROBERTA Ellington at 1500. Once ambulance arrived pt. became agitated and his Pulse remained between the 120 and the 130 range. [facility] was called and intake notified this sports writer that because they are not a medical facility they will not accept the pt. until his heart rate is lower than 120. All MDs on the case notified. PRN Vistaril X 2 Clonidine X2 and Maloxx given during shift. Last CIWA of 15. Safety measures in place. Will endorse pt.s care to oncoming shift.
--- NOTE | 2018-02-27 19:36 | NUR ---
1x dose Ativan Px received Ativan 1 mg/tab, 2 tabs PO as 1x dose ,for agitation and increased anxiety. We'll continue to monitor.
[2018-02-27 20:00] VITALS: BP 130/82
[2018-02-27] MEDS ORDERED: LORAZEPAM 1 MG TABLET PO ONE (20:00)
--- NOTE | 2018-02-27 20:00 | NUR ---
VS BP= 130/82, DC= 118, RR= 18, T= 98.0, O2sat= 96% on RA. We'll continue to monitor.
--- NOTE | 2018-02-27 21:23 | NUR ---
TRANSFER NOTE Ambulance was called at 2122. Spoke with COY Cordova 2300.
--- NOTE | 2018-02-27 22:31 | NUR ---
TRANSFER NOTE Gave report to nurse Chase from [facility] regarding transfer of pt. Pt will be in [facility] room 403 B.
--- NOTE | 2018-02-27 22:52 | NUR ---
D/C Notes Px is stable condition. VS are WNL. Skin is intact. Px denies any suicidal or homicidal ideations. D/C paper works signed and dated. Mary Anne was D/C from [facility] on 02/27/2018 at 2252 via ambulance going to [facility] under the care of psychiatrist Dr. Zuniga. Px left the building with all his medications,belongings and rx. aware.
[2018-02-28] MEDS ORDERED: DIAZEPAM 5 MG TABLET PO SCH (09:00)
[2018-02-28] MEDS ORDERED: NICOTINE 21 MG/24HR PATCH TD SCH (09:00)
--- NOTE | 2018-03-01 09:08 | NUR ---
Firearms Report: Intermediate Project Manager completed and submitted [employer] Firearms Report on 03/01/18 for Danger to Others certification.
== END 2018-02-27 22:53 | DRG 895 ==
LOC: SRC 02-23 18:41
PROVIDERS: ADMIT Family Medicine Addiction Medicine; ATTEND Family Medicine Addiction Medicine
PROC: HZ2ZZZZ Detoxification Services for Substance Abuse Treatment (ICD-10-PCS; principal; 2018-02-23)
PROC: HZ51ZZZ Individual Psychotherapy for Substance Abuse Treatment, Behavioral (ICD-10-PCS; 2018-02-25)
DX: F10.231 Alcohol dependence with withdrawal delirium (principal); F15.23 Other stimulant dependence with withdrawal; Y90.9 Presence of alcohol in blood, level not specified; F41.0 Panic disorder [episodic paroxysmal anxiety]; F12.20 Cannabis dependence, uncomplicated; G89.29 Other chronic pain; M54.5 Low back pain; B19.20 Unspecified viral hepatitis C without hepatic coma; E87.6 Hypokalemia; F32.9 Major depressive disorder, single episode, unspecified
CPT/HCPCS: 36415; 70030-TC; 80307; 83690; 83735; 84443; 85025; 86580; 86592; 86705; 86803; 87340; 87806; A4663; G0480; J2060; J2358; J3411